=== PATIENT | female | born 1985 | race Caucasian/White ===

== ENCOUNTER → 2016-02-18 | Outpatient (CLI) | payer OTHER | LOC: BHSO 10:46 | DX: F33.42 Major depressive disorder, recurrent, in full remission (principal) ==

== ENCOUNTER → 2016-05-26 | Outpatient (CLI) | payer OTHER | LOC: BHSO 10:26 | DX: F33.42 Major depressive disorder, recurrent, in full remission (principal) ==

== ENCOUNTER → 2016-08-24 | Outpatient (CLI) | payer OTHER | LOC: BHSO 10:48 | DX: F33.41 Major depressive disorder, recurrent, in partial remission (principal) ==

== ENCOUNTER → 2016-11-22 | Outpatient (CLI) | payer OTHER | LOC: BHSO 15:41 | DX: F41.1 Generalized anxiety disorder (principal) ==